=== PATIENT | male | born 1970 | race Caucasian/White ===

== ENCOUNTER → 2023-10-05 08:52 | Outpatient (BNVA) | payer MEDICAID, SELFPAY | PROVIDERS: Visit Provider Nurse Practitioner Family | DX: Z13.6 Encounter for screening for cardiovascular disorders (principal); E66.9 Obesity, unspecified; Z12.5 Encounter for screening for malignant neoplasm of prostate; Z76.89 Persons encountering health services in other specified circumstances; E66.09 Other obesity due to excess calories | CPT/HCPCS: 80053; 80061; 83036; 84443; 85025; G0103 ==

== ENCOUNTER → 2023-11-07 10:54 | Outpatient (BNVA) | payer MEDICAID, SELFPAY | PROVIDERS: Visit Provider Nurse Practitioner Family | DX: D58.2 Other hemoglobinopathies (principal); Z13.6 Encounter for screening for cardiovascular disorders; E78.5 Hyperlipidemia, unspecified; G47.9 Sleep disorder, unspecified | CPT/HCPCS: 85025 ==

== ENCOUNTER → 2023-12-24 10:50 | Outpatient (BNVA) | payer MEDICAID, SELFPAY | PROVIDERS: PCP Nurse Practitioner Family; Visit Provider Nurse Practitioner Family | DX: E78.5 Hyperlipidemia, unspecified (principal); D58.2 Other hemoglobinopathies; G47.9 Sleep disorder, unspecified; F10.10 Alcohol abuse, uncomplicated; F17.200 Nicotine dependence, unspecified, uncomplicated | CPT/HCPCS: 80053; 80061; 85025 ==

== ENCOUNTER → 2024-11-25 13:18 | Outpatient (BNVA) | payer OTHER, SELFPAY | PROVIDERS: PCP Clinical Nurse Specialist Adult Health; Visit Provider Psychiatry & Neurology Psychiatry | DX: F33.1 Major depressive disorder, recurrent, moderate (principal); F41.1 Generalized anxiety disorder; F10.20 Alcohol dependence, uncomplicated | CPT/HCPCS: 80061; 83036 ==

== ENCOUNTER → 2025-01-12 08:01 | Outpatient (BNVA) | payer MEDICAID, SELFPAY ==
[2024-11-28 10:53] VITALS: BP 147/88; BMI 44.1
== END ==
PROVIDERS: PCP Clinical Nurse Specialist Adult Health; Referring Provider Clinical Nurse Specialist Adult Health; Visit Provider Student in an Organized Health Care Education/Training Program
DX: Z12.11 Encounter for screening for malignant neoplasm of colon (principal)
CPT/HCPCS: 99024; 99204

== ENCOUNTER 2025-02-24 06:08 | Day surgery (SDC) | payer MEDICAID, SELFPAY ==
[2024-11-28 10:53] VITALS: BP 147/88; BMI 44.1
[2025-02-24 06:17] VITALS: BP 123/75; PULSE 75; RESP 18; TEMP 36.2; O2SAT 95; BMI 42.3
--- NOTE | 2025-02-24 06:28 | ANES.PREANE2 ---
Pre-Anesthetic Assessment Height/Weight: Height 1.7 m Weight 122.47 kg Temp Pulse Resp BP Pulse Ox O2 Del Method 97.2 F L 75 18 123/75 95 Room Air 02/24/25 06:17 02/24/25 06:17 02/24/25 06:17 02/24/25 06:17 02/24/25 06:17 02/24/25 06:17 Operation Date: 02/24/25 07:00 Proposed Procedures p Colonoscopy [id number] Z12.11(Not Applicable) - Ned Garsia MD Familial anesthetic complications: Never had anesthesia, no known family complications Was Beta Doreen taken within 24 hours: N/A Was Clonidine taken within 24 hours: N/A Last intake: Intake Last Liquid Date 02/23/25 Last Liquid Time 20:00 Last Solid Date 02/22/25 Last Solid Time 12:00 Social Tobacco and No alcohol (Stopped drinking 1-1.5 months ago, previously drank 12 pack a day) 1 pack(s) per day Exam alert, oriented x 3, clear to auscultation bilaterally and regular rate & rhythm Airway Submandibular: within normal limits Cervical ROM: within normal limits Mallampati: Class III Dentition: full (Several chipped upper left) Comments: Comments: Romero History/ROS No significant history except as noted and No significant complaints Pulmonary Exertional Dyspnea CV/HEM None reported None reported Hepatic None reported GI None reported Metabolic Hyperlipidemia and Morbid Obesity [facility] [place] Lower Back Pain and Osteoarthritis/DJD Neuropsych Anxiety and Depression Anesthetic Plan ASA status: 3 Anesthesia: Anesthesia Evaluation, General and MAC Risk of > 500 ml blood loss (7ml/kg in children): No Medications/Allergies Home Medications ?Medication ?Instructions ?Recorded ?Confirmed ?Last Taken ?Type naproxen 250 mg tablet 250 mg PO BID #60 tabs 07/21/24 02/19/25 02/19/25 Rx bisacodyl 5 mg tablet,delayed 5 mg PO DAILY #4 tabs 01/12/25 02/19/25 Unknown Rx release (Dulcolax (bisacodyl)) magnesium citrate 592 ml PO BID constipation #592 mL 01/12/25 02/19/25 Unknown Rx naltrexone microspheres 380 mg 380 mg IM .Monthly #1 ea 02/16/25 02/19/25 02/16/25 Rx intramuscular suspension,extended release (Vivitrol) sertraline 100 mg tablet 200 mg (2 x 100 mg) PO DAILY #60 02/16/25 02/19/25 02/19/25 Rx tabs trazodone 100 mg tablet 300 mg (3 x 100 mg) PO .HS #90 tabs 02/16/25 02/19/25 02/19/25 Rx Allergies Allergy/AdvReac Type Severity Reaction Status Date / Time No Known Allergies Allergy Verified 02/16/25 14:23 Current Medications Generic Name Dose Route Start Last Admin Trade Name Freq PRN Reason Stop Dose Admin Sodium Chloride 1,000 mls @ 15 mls/hr 02/24/25 06:09 02/24/25 06:23 Sodium Chloride 0.9% IV 02/25/25 06:08 15 mls/hr .Q24H PRN Administration COLONOSCOPY FLUIDS PFSH Anesthesia Medical History Psychiatric care Generalized osteoarthritis Alcohol abuse Insomnia Tobacco abuse Polycythemia Hyperlipidemia hx of elevated total cholesterol but LDL less than 190 Surgical History No significant past surgical history Family History Grandmother Cancer mouth cancer that metastesized Mother Diabetes mellitus, type 2 Grandfather Heart disease Denies family history of Clotting disorder Anesthesia complication Bleeding disorder Social History Smoking and tobacco/nicotine status: current every day tobacco/nicotine user cigarettes Packs smoked per day: 1 [ Other cigarette details: 30 pack year history] Second hand smoke exposure: No Alcohol intake: former Year of sobriety/quit date alcohol: 2023 Substance/Drug Use: never Adopted: No Caregiver/support person: No Lives independently: Yes Household members: none Housing: House Marital status: Single Number of children: 0 Highest education level completed: High School Graduate service: No Current occupational status: employed
--- NOTE | 2025-02-24 07:03 | W.PM.OPSFHP ---
Same Day Surgery H&P Indication for Procedure/HPI DATE OF PROCEDURE: February 24, 2025 CHIEF COMPLAINT/INDICATIONFOR SURGICAL PROCEDURE: screening colonoscopy PREOP DIAGNOSIS: screening colonoscopy PLANNED PROCEDURE: Operation Date: 02/24/25 07:00 Proposed Procedures p Colonoscopy [id number] G0121 Z12.11(Not Applicable) - Ned Garsia MD Medications/Allergies* Allergies/Adverse Reactions Allergy/AdvReac Type Severity Reaction Status Date / Time No Known Allergies Allergy Verified 02/16/25 14:23 Current Medications: Generic Name Dose Route Start Last Admin Trade Name Freq PRN Reason Stop Dose Admin Sodium Chloride 1,000 mls @ 15 mls/hr 02/24/25 06:09 02/24/25 06:23 Sodium Chloride 0.9% IV 02/25/25 06:08 15 mls/hr .Q24H PRN Administration COLONOSCOPY FLUIDS Pertinent History/Comorbid Conditions* Medical History (Updated 12/19/24 @ 16:34 by Roni Velez NP) Psychiatric care Generalized osteoarthritis Alcohol abuse Insomnia Tobacco abuse Polycythemia Hyperlipidemia hx of elevated total cholesterol but LDL less than 190 Surgical History (Updated 10/05/23 @ 09:09 by CATHY Grider) No significant past surgical history Family History (Updated 06/16/24 @ 15:29 by Roni Velez NP) Diabetes mellitus, type 2 Mother Heart disease Grandfather Cancer Grandmother mouth cancer that metastesized Denies family history of Clotting disorder Anesthesia complication Bleeding disorder Social History Smoking and tobacco/nicotine status: current every day tobacco/nicotine user cigarettes Packs smoked per day: 1 [ Other cigarette details: 30 pack year history] Second hand smoke exposure: No Alcohol intake: former Year of sobriety/quit date alcohol: 2023 Substance/Drug Use: never Adopted: No Caregiver/support person: No Lives independently: Yes Household members: none Housing: House Marital status: Single Number of children: 0 Highest education level completed: High School Graduate service: No Current occupational status: employed Pertinent Exam Findings alert, oriented x 3, clear to auscultation bilaterally, regular rate & rhythm and procedure specific exam findings abdomen soft, nt, nd Recommendations Risks and benefits of procedure reviewed and Patient/family agree to proceed Surgery/Procedure today Coding Level of Care Code Acute Code for Chg Fwd
--- NOTE | 2025-02-24 07:26 | PC.NURSE ---
cecum time 0724
[2025-02-24 07:40] VITALS: BP 119/71; PULSE 61; RESP 16; TEMP 36.5; O2SAT 93
[2025-02-24 08:04] VITALS: BP 121/80; PULSE 63; RESP 16; O2SAT 91
--- NOTE | 2025-02-24 08:05 | ANE.PACU2 ---
Inpatient post-anesthesia follow up: Airway intact: Yes Vital signs: Temperature 97.7 F Pulse Rate 63 Respiratory Rate 16 Blood Pressure 121/80 Pulse Oximetry 91 Oxygen Delivery Me thod Room Air Oxygen Flow Rate Fraction of Inspir ed Oxygen Hydration adequate: Yes Nausea and vomiting: No Pain level: 1 Mental status: Baseline
== END 2025-02-24 08:09 | disposition home or self-care (01) ==
PROVIDERS: PCP Clinical Nurse Specialist Adult Health; Visit Provider Student in an Organized Health Care Education/Training Program
PROC: 0DJD8ZZ Inspection of Lower Intestinal Tract, Via Natural or Artificial Opening Endoscopic (ICD-10-PCS; CPT 45378; principal; 2025-02-24 07:00)
DX: Z12.11 Encounter for screening for malignant neoplasm of colon (principal); D12.5 Benign neoplasm of sigmoid colon; D12.3 Benign neoplasm of transverse colon; F17.210 Nicotine dependence, cigarettes, uncomplicated; E78.5 Hyperlipidemia, unspecified; D75.1 Secondary polycythemia; E66.01 Morbid (severe) obesity due to excess calories; Z68.41 Body mass index [BMI] 40.0-44.9, adult; F41.8 Other specified anxiety disorders
CPT/HCPCS: 45385; 88305; J2704; J3490; J7030

== ENCOUNTER → 2025-03-19 13:29 | Outpatient (BNVA) | payer MEDICAID, SELFPAY ==
[2024-11-28 10:53] VITALS: BP 147/88; BMI 44.1
== END ==
PROVIDERS: PCP Clinical Nurse Specialist Adult Health; Visit Provider Clinical Nurse Specialist Adult Health
DX: I10 Essential (primary) hypertension (principal); F17.210 Nicotine dependence, cigarettes, uncomplicated; F10.20 Alcohol dependence, uncomplicated; F33.1 Major depressive disorder, recurrent, moderate; F41.1 Generalized anxiety disorder; D75.1 Secondary polycythemia; E78.5 Hyperlipidemia, unspecified
CPT/HCPCS: 80053; 80061; 84443; 84550; 85025

== ENCOUNTER 2025-03-25 20:00 | Outpatient (CLI) | payer MEDICAID, SELFPAY ==
[2024-11-28 10:53] VITALS: BP 147/88; BMI 44.1
== END 2025-03-25 20:01 | disposition home or self-care (01) ==
LOC: SLEEP 20:30
PROVIDERS: PCP Clinical Nurse Specialist Adult Health; Referring Provider Clinical Nurse Specialist Adult Health; Visit Provider Internal Medicine Pulmonary Disease
DX: R06.83 Snoring (principal)
CPT/HCPCS: 95810

== ENCOUNTER 2025-04-06 09:00 | Outpatient (CLI) | payer MEDICAID, SELFPAY ==
[2024-11-28 10:53] VITALS: BP 147/88; BMI 44.1
--- NOTE | 2025-04-06 09:30 | CT_ITS ---
WS: [id number] LDCT LUNG CANCER SCREENING HISTORY: Z72.0 - Tobacco use TECHNIQUE: Axial imaging performed from the apices to 1 cm below the costophrenic angles. Coronal and sagittal reformats are submitted with axial MIP series. All CT scans at [facility] use at least one of these dose optimization techniques: automated exposure control; mA and/or kV adjustment per patient size (includes targeted exams where dose is matched to clinical indication); or iterative reconstruction. DLP: 154.20 mGy.cm DIvol: Mean CTDIvol: 3.80 (mGy) COMPARISON: None available. Diagnostic quality: Satisfactory Lungs: Mild increased AP diameter of the thorax. 3 mm noncalcified nodule LEFT lower lobe. Subsegmental atelectasis at the lingula. No pulmonary mass or nodule. No endobronchial lesions. Heart: Normal size heart with no pericardial effusion.. Other findings: Substernal thyroid is slightly enlarged. Normal size aorta and pulmonary artery. Mild coronary artery calcifications. No adrenal mass. Degenerative disc space narrowing at T11-12 with endplate sclerosis. No destructive bone lesions. CT/CT lung screening 52402 IMPRESSION: LUNG-RADS: 2-Benign Appearance or Behavior FOLLOW UP: 12 Month: Continue annual screening with LDCT OTHER FINDINGS (S MODIFIER): None.
== END 2025-04-06 09:01 | disposition home or self-care (01) ==
LOC: RAD 09:04
PROVIDERS: PCP Clinical Nurse Specialist Adult Health; Visit Provider Clinical Nurse Specialist Adult Health
DX: Z12.2 Encounter for screening for malignant neoplasm of respiratory organs (principal); Z72.0 Tobacco use; R91.1 Solitary pulmonary nodule; F10.20 Alcohol dependence, uncomplicated; F33.1 Major depressive disorder, recurrent, moderate; F41.1 Generalized anxiety disorder; D75.1 Secondary polycythemia; E78.5 Hyperlipidemia, unspecified; J98.11 Atelectasis; E04.9 Nontoxic goiter, unspecified; I25.84 Coronary atherosclerosis due to calcified coronary lesion; M51.34 Other intervertebral disc degeneration, thoracic region; M51.84 Other intervertebral disc disorders, thoracic region
CPT/HCPCS: 71271

== ENCOUNTER 2025-05-18 19:58 | Outpatient (CLI) | payer MEDICAID, SELFPAY ==
[2024-11-28 10:53] VITALS: BP 147/88; BMI 44.1
== END 2025-05-18 19:59 | disposition home or self-care (01) ==
LOC: SLEEP 19:58
PROVIDERS: PCP Clinical Nurse Specialist Adult Health; Referring Provider Clinical Nurse Specialist Adult Health; Visit Provider Internal Medicine Pulmonary Disease
DX: G47.33 Obstructive sleep apnea (adult) (pediatric) (principal); G47.61 Periodic limb movement disorder
CPT/HCPCS: 95811

== ENCOUNTER → 2025-06-11 13:11 | Outpatient (BNVA) | payer MEDICAID, SELFPAY ==
[2024-11-28 10:53] VITALS: BP 147/88; BMI 44.1
== END ==
PROVIDERS: PCP Clinical Nurse Specialist Adult Health; Visit Provider Clinical Nurse Specialist Adult Health
DX: J41.0 Simple chronic bronchitis (principal); E78.49 Other hyperlipidemia
CPT/HCPCS: 80053; 80061; 85025